=== PATIENT | male | born 1955 | race Caucasian/White ===

== ENCOUNTER 2017-09-13 04:51 | Emergency (ER) | payer SELFPAY ==
[~2017-09-13] VITALS: Ht 180.3 cm; Wt 77.1 kg
--- NOTE | 2017-09-13 05:00 | NUR ---
Patient brought in by rescue, has wound on left lower leg, blood pressure high at 178/113
--- NOTE | 2017-09-13 05:06 | NUR ---
Dr. Coker at bedside for MSE.
[2017-09-13] MEDS ORDERED: SULFAMETH/TRIMETH 800/160 MG TABLET ONE (05:14)
[2017-09-13] MEDS ORDERED: CLONIDINE HCL 0.1 MG TABLET ONE (05:14)
[2017-09-13] MEDS ORDERED: NEOMY/BACITRA/POLYMYXIN B OINT UD PACKET TP ONE ×2 (05:15)
[2017-09-13] MEDS ORDERED: CLONIDINE HCL 0.1 MG TABLET PO ONE (05:15)
[2017-09-13] MEDS ORDERED: SULFAMETH/TRIMETH 800/160 MG TABLET PO ONE (05:15)
--- NOTE | 2017-09-13 06:30 | NUR ---
Patient given written and verbal discharge instructions. Patient verbalizes understanding of instructions. Patient is ambulatory with steady gait. Refuses offer of correction placement. Patient given list of available shelters in surrounding area. Patient reports he has no means to get back to his residence in [place]. Called [employer] for Taxi voucher for patient's provided address [id number] [place], [place].
--- NOTE | 2017-09-13 06:40 | NUR ---
Patient reports unable to walk due to pain on left leg, requests some crutches. MD notified.
--- NOTE | 2017-09-13 06:50 | NUR ---
Crutches dispensed, gait training provided.
--- NOTE | 2017-09-13 07:03 | NUR ---
Patient discharged out of ER with crutches. VSS, no acute signs of distress, all belongings taken.
[2017-09-13 07:05] VITALS: BP 149/93
== END 2017-09-13 07:05 | disposition home or self-care (01) ==
LOC: ER 04:54
DX: L03.116 Cellulitis of left lower limb (principal); E11.9 Type 2 diabetes mellitus without complications; I10 Essential (primary) hypertension
CPT/HCPCS: A4663